=== PATIENT | female | born 1955 | race Caucasian/White ===

== ENCOUNTER 2019-03-13 10:31 | Outpatient (CLI) | payer BC, SELFPAY ==
--- NOTE | 2019-03-13 10:00 | DI.RAD_ITS ---
EXAM: XR TOE LT GREAT INDICATION: f/u L great toe OA. COMPARISON: No exams were available for comparison TECHNIQUE: 2D digital imaging was performed. FINDINGS: There is narrowing of the cartilaginous joint space at the 1st MTP joint. There are prominent osteop hytes present particularly involving the head of the 1st metatarsal in the sesamoids. No other signi ficant bony abnormality seen. IMPRESSION: Moderate to severe degenerative change, 1st MTP joint.
--- NOTE | 2019-03-13 10:00 | DI.RAD_ITS ---
EXAM: XR ANKLE LT COMPLETE INDICATION: lateral malleolus pain. COMPARISON: No exams were available for comparison TECHNIQUE: 2D digital imaging was performed. FINDINGS: There are prominent osteophytes of the plantar fascia attachment on the calcaneus and to a lesser deg ree at the Achilles attachment and at the posterior articular margin of the tibia. The ankle mortise is well maintained. Mild osteophytes of the medial and lateral malleoli noted. IMPRESSION: Degenerative changes as described above
--- NOTE | 2019-03-13 10:02 | DI.RAD_ITS ---
EXAM: XR KNEE LT 3V AP,LAT,SWAPNA INDICATION: L knee pain, h/o arthritis. COMPARISON: XR KNEE RT 3V AP,LAT,SWAPNA from 03/13/2019 TECHNIQUE: 2D digital imaging was performed. FINDINGS: There is marked narrowing of the medial tibiofemoral cartilaginous joint space. There are prominent marginal osteophytes associated with the medial tibiofemoral joint. There is subchondral sclerosis p resent at the medial tibiofemoral joint. IMPRESSION: Conclusion severe DJD of medial tibiofemoral joint
--- NOTE | 2019-03-13 10:02 | DI.RAD_ITS ---
EXAM: XR KNEE RT 3V AP,LAT,SWAPNA INDICATION: new R knee pain. COMPARISON: LEFT KNEE 4+ VIEWS from 01/02/2015 TECHNIQUE: 2D digital imaging was performed. FINDINGS: Three views were obtained. There is a small knee joint effusion. There is marked narrowing of the m edial tibiofemoral cartilaginous joint space and subchondral sclerosis is noted involving the bones a t the medial joint. Mild marginal osteophytes noted involving the joints of the knee. IMPRESSION: DJD particularly involving medial tibiofemoral joint
== END 2019-03-13 10:51 ==
PROVIDERS: PCP Family Medicine; Visit Provider Student in an Organized Health Care Education/Training Program
DX: M25.561 Pain in right knee (principal); M25.562 Pain in left knee; M17.0 Bilateral primary osteoarthritis of knee; M25.572 Pain in left ankle and joints of left foot; M19.072 Primary osteoarthritis, left ankle and foot; M20.22 Hallux rigidus, left foot; M79.675 Pain in left toe(s)
CPT/HCPCS: 73562; 73610; 73660

== ENCOUNTER 2019-07-21 11:32 | Outpatient (CLI) | payer BC, SELFPAY ==
--- NOTE | 2019-07-21 10:20 | DI.RAD_ITS ---
EXAM: XR KNEE RT 4V AP,LAT,SWAPNA,PAT CLINICAL HISTORY: eval R knee pain and swelling TECHNIQUE: COMPARISON: XR KNEE LT 3V AP,LAT,SWAPNA from 03/13/2019 FINDINGS: Four views were obtained. There is moderate to severe narrowing of the medial tibiofemoral cartilagi nous joint space. Slight narrowing of lateral patellofemoral cartilaginous joint space with mild lat eral patellar subluxation noted. Mild to moderate marginal osteophyte formation involving the joints of the knee. IMPRESSION: Moderate DJD, most marked involving medial tibiofemoral joint.
== END 2019-07-21 11:52 ==
PROVIDERS: PCP Family Medicine; Visit Provider Student in an Organized Health Care Education/Training Program
DX: M25.561 Pain in right knee (principal); M17.11 Unilateral primary osteoarthritis, right knee
CPT/HCPCS: 73564

== ENCOUNTER 2019-08-22 09:55 | Outpatient (CLI) | payer BC, SELFPAY ==
--- NOTE | 2019-08-22 09:15 | DI.RAD_ITS ---
EXAM: XR STANDING ALIGNMENT XR KNEE LT 1 VIEW INDICATION: discuss surgery. COMPARISON: XR KNEE RT 4V AP,LAT,SWAPNA,PAT from 07/21/2019 TECHNIQUE: 2D digital imaging was performed. FINDINGS: There is no significant overall leg length discrepancy at the level of the femoral heads. There are degenerative changes of both knees, left greater than right. The ankles show mild degenerative pacheco es. There are mild degenerative changes in the hips. A Merchant view was performed. There is some lateral patellar subluxation and spurring at the articular aspect of the patella. IMPRESSION: Degenerative changes of the medial femoral tibial joint bilaterally and [id number] degenerativ e changes of the right patellofemoral joint. DATA REPOSITORY: RADIATION DOSE DELIVERED:
--- NOTE | 2019-08-22 09:30 | DI.RAD_ITS ---
EXAM: XR STANDING ALIGNMENT XR KNEE LT 1 VIEW INDICATION: discuss surgery. COMPARISON: XR KNEE RT 4V AP,LAT,SWAPNA,PAT from 07/21/2019 TECHNIQUE: 2D digital imaging was performed. FINDINGS: There is no significant overall leg length discrepancy at the level of the femoral heads. There are degenerative changes of both knees, left greater than right. The ankles show mild degenerative pacheco es. There are mild degenerative changes in the hips. A Merchant view was performed. There is some lateral patellar subluxation and spurring at the articular aspect of the patella. IMPRESSION: Degenerative changes of the medial femoral tibial joint bilaterally and gbuv-ia-[id number] degenerativ e changes of the right patellofemoral joint. DATA REPOSITORY: RADIATION DOSE DELIVERED:
== END 2019-08-22 10:15 ==
PROVIDERS: PCP Family Medicine; Visit Provider Student in an Organized Health Care Education/Training Program
DX: M25.561 Pain in right knee (principal); M25.562 Pain in left knee; M17.0 Bilateral primary osteoarthritis of knee; M16.0 Bilateral primary osteoarthritis of hip
CPT/HCPCS: 73560; 77073

== ENCOUNTER 2019-08-31 17:47 | Observation (INO) | payer BC, SELFPAY ==
[2019-08-31] VITALS (9 sets, daily range): BP systolic 95–136; BP diastolic 53–81; PULSE 63–81; RESP 11–26; TEMP 36–37.2; O2SAT 95–97
--- NOTE | 2019-08-31 | DI.RAD_ITS ---
EXAM: XR KNEE RT 2V AP,LAT CLINICAL HISTORY: Postop. TECHNIQUE: 2D digital imaging was performed. COMPARISON: XR KNEE RT 4V AP,LAT,SWAPNA,PAT from 07/21/2019 FINDINGS: BONES: No acute fracture is present. No bony destructive lesion is seen. JOINTS: The knee is normally aligned. There is periarticular spurring of the posterior patella in the lateral femoral tibial joint space. Patient is now status post partial joint replacement. SOFT TISSUE: Postsurgical changes are seen in the soft tissues. IMPRESSION: Status post partial right knee replacement. DATA REPOSITORY: RADIATION DOSE DELIVERED:
[2019-08-31] MEDS: Lactated Ringers 1,000 ML 100 ML IV ×2 (11:03→16:38)
[2019-08-31] MEDS: Gabapentin 300 MG CAP PO (12:14)
[2019-08-31] MEDS: Naproxen 500 MG TAB PO (12:14)
[2019-08-31] MEDS: Acetaminophen 500 MG TAB 1000 MG PO (12:14)
[2019-08-31] MEDS: ceFAZolin 2 GM/50 ML BAG IVPB ×2 (13:12→17:17)
[2019-08-31] MEDS: Bupivacaine 0.25% Pres-Free 30 ML VIAL (16:39)
[2019-08-31] MEDS: Ketorolac 30 MG/ML VIAL (16:40)
--- NOTE | 2019-08-31 17:11 | PDOC.DSDIS_ITS ---
Discharge Plan Disposition Patient Disposition: HOME Condition: Stable Discharge Details Reason For Visit: (R) KNEE ARTHRITIS Attending Provider: Lucien Thurston Primary Care Provider: Geovani Cuadra Home Meds and New Rx's Prescriptions: New naproxen 250 mg tablet 250 - 500 mg PO BID PRN (Reason: Moderate pain or swelling) Qty: 60 RF: 0 aspirin 325 mg tablet,delayed release (DR/EC) 325 mg PO BID 30 Days Qty: 60 RF: 0 oxycodone 5 mg tablet 5 - 10 mg PO Q4H PRN (Reason: moderate to severe pain) Qty: 22 RF: 0 Continued loperamide [Imodium A-D] 2 mg Tablet 2 mg PO Q4H PRNRF: 0 acetaminophen [Tylenol Extra Strength] 500 mg Tablet 500 mg PO Q6H PRNRF: 0 lactase [Lactaid] 3,000 unit Tablet 3,000 unit PO ONCE PRNRF: 0 bismuth subsalicylate [Pepto-Bismol] 262 mg Tablet,Chewable 2 tab PO Q30-60M PRNRF: 0 Probiotic Colon Support 70 mg (5 billion cell) Tablet,Delayed Release (Dr/Ec) 1 tab PO DAILY RF: 0 Natural Tears (PF) 0.1-0.3 % Dropperette 1 drp ophthalmic (eye) PRN PRNRF: 0 naproxen sodium 220 mg Capsule 440 mg PO PRN PRNRF: 0 Discharge Instructions Additional Instructions: Surgery: Right medial unicondylar knee replacement Activity: Weightbearing as tolerated. Walk as comfort allows. Important to restore full knee extension as soon as possible. May gently progress knee flexion over the next few weeks. May use walker as needed. A physical therapy prescription will be provided separately in the office at follow-up if needed. Do not rest with pillows behind knee to prevent knee from getting stuck bent. Prescriptions: Aspirin 325 mg take 1 twice a day to prevent a blood clot 30 days Naproxen 250 mg take 1-2 every 12 hours with a meal as needed for moderate pain Oxycodone 5 mg take 1-2 every 4-6 hours as needed for severe pain You may use kojc-[id number] Tylenol (acetaminophen) as needed for mild pain. These pain medications may be taken all at once or in different combinations as needed. Also, recommend Colace (docusate) as a stool softener as surgery and pain medicine cause constipation. Dressings: Leave Band-Aid in place until follow-up. Keep clean and dry at all times. May remove Shaquille wrap tonight. May rewrap with Shaquille wrap to help control swelling. Follow-up: 10-[address] Thurston Please call the office during business hours with any questions or concerns. Let us know right away if you develop any redness, drainage, fevers, chest pain, or trouble breathing. Do not drink alcohol or drive for at least 24 hours after anesthesia. Referrals: Lucien Thurston MD [ [facility] STAFF PHYSICIAN] - Discharge Orders Discharge Orders: Discharge Order (Routine); Ordered 08/31/19 Ordered By: Lucien Thurston DS: Diagnosis Discharge Diagnosis (1) Osteoarthritis of right knee: Status: Acute
--- NOTE | 2019-08-31 18:24 | W.PM.OP ---
Date of service: 08/31/19 Time of Service: 17:56 Operative Note Operative Note DATE OF PROCEDURE: 08/31/19 PRE-OP DIAGNOSIS: 1. Right knee medial compartmental arthritis POST-OP DIAGNOSIS: same PROCEDURE: 1. Right knee medial unicompartmental arthroplasty The assistant professor of communication surgeon was medically required as this procedure involves retraction, protection of neurovascular structures, and manipulation 2-4 instruments and implants at the same time, which cannot be done without a skilled assistant professor of communication. SURGEON: Lucien Thurston ASSISTING SURGEON: Alex Middleton MOLD FINISHER: None None ANESTHESIA: MAC, regional, local and spinal ESTIMATED BLOOD LOSS: 150 COMPLICATIONS: None Patient was transported to: PACU Patient's condition: stable Implants: Marlene Sigma HP partial knee size 1 metal-backed tibial tray, 7 mm tibial insert fixed bearing, size 1 femoral component Indications: Please see complete medical record for details. Findings: Isolated medial compartment osteoarthritis Procedure Description: The patient was taken to the operating room and transferred to the operating room table. Spinal anesthesia was induced. All bony prominences were well-padded. Preoperative antibiotics were administered. The right knee and lower extremity was prepped and draped in the usual sterile fashion. The correct patient, procedure, and side of the procedure were all verified prior to incision. A slightly medial of midline longitudinal approach was used to the knee extending from the superior pole the patella to the distal aspect of the tibial tubercle. The quadriceps tendon, patella borders and patellar tendon were exposed. A full-thickness arthrotomy was performed starting splitting the quadriceps tendon and leaving a sleeve of tissue on the medial aspect of the patella and taking care to progress along the medial margin the patellar tendon. The MCL was elevated off the proximal medial tibia. The tibial alignment jig was set in place on the anterior medial aspect of the tibia and carefully adjusted to achieve proper alignment in the coronal and sagittal planes. Reciprocating saw was used to create the vertical cut at the medial aspect of the medial tibial eminence taking care to protect the ACL ligament footprint. The transverse cut was then done using the microsagittal saw through the jig taking care to retract and protect the MCL. The bone piece and cut were inspected and found to be appropriate for patient anatomy. The 7 mm spacer block was inserted but found to be tight. The jig was then used to remove another 2 mm of proximal tibia. A rasp was used to clean up the cut especially the L component. The 7 mm spacer block then fit adequately with approximately 2 mm of joint space opening in flexion and extension. The tibia was sized and found to be size 1. There was equal flexion and extension gap. The distal femoral cutting block was inserted taking care to orient it appropriately. Distal femoral cut was done using a microsagittal saw through the guide. The guide and bone piece were removed cut inspected and found to be adequate. The femoral sizing blocks were used and the size was almost a 2 but the 2 had overhang medially and laterally unfortunately so a size 1 although somewhat undersized had to be used. Care was taken to ensure the block was flush with the resected distal femoral surface. Next, the posterior cut was done through the jig, the anterior cut was done using the osteotomes, the posterior chamfer cut was done to the jig, and the drill was used to drill the 2 peg holes. The femoral component trial was placed in the distal femur and the 7 mm spacer block confirmed appropriate balancing in flexion extension. The resected bone ends were inspected. It was used to clean up the edge of the cuts. Care was taken to ensure no cartilage delamination of the distal femur or trochlea. The majority of the medial meniscus was removed. Tibial template was inserted in size confirmed to be appropriate. The keel was used by hand to remove bone from the slot and the tibial peg drill was used in the peg hole. The pulse lavage was used to clean the bone surfaces. An Exparel injection was infiltrated in the posterior knee. Cement was prepared smart set medium viscosity containing gentamicin 40 g. At the appropriate time and the working face cement was carefully placed and pressurized into the proximal tibia and applied to the back of the tibial tray taking care to only have minimal cement posteriorly. Cement was also placed on the underside of the femoral implant implant. The tibial component was inserted at an angle and then impacted directing pressure from posteriorly to anteriorly keep the flow of cement from posterior to anterior. Cement was then applied to the distal femur and the femoral component impacted. Excess cement was removed. The knee was brought into full extension and maintained until the cement was completely hardened. Tibial tray market research manager was removed and the final tibial insert was inserted into place. The knee was tested through full range of motion found to be stable with good balancing and a few millimeters of gapping and 30 degrees of flexion. Knee was inspected for loose debris and cement and all removed. The knee was copiously irrigated with the pulse lavage and then Aricept. The remainder of the Exparel injection was used to diffusely infiltrate capsular tissues about the knee. Procrit hemostasis was achieved. The capsule closed using #1 Vicryl in a running strata fix barbed suture. Superficial layers were irrigated. 2-0 Monocryl was used in a buried interrupted fashion to close subcutaneous tissue. A 3-0 Monocryl was used to close skin in a buried subcuticular fashion. The skin incision was glued and then covered with a silver impregnated bandage. An Shaquille wrap was applied from the foot up to the thigh. The patient awoke from anesthesia without complication was transferred to the recovery room in stable condition.
== END 2019-08-31 21:02 | disposition home or self-care (01) ==
LOC: MS 18:12
PROVIDERS: Admitting Provider Student in an Organized Health Care Education/Training Program; PCP Family Medicine; Visit Provider Student in an Organized Health Care Education/Training Program
PROC: 0SRC0L9 Replacement of Right Knee Joint with Medial Unicondylar Synthetic Substitute, Cemented, Open Approach (ICD-10-PCS; CPT 27447; principal; 2019-08-31 11:30)
DX: M17.11 Unilateral primary osteoarthritis, right knee (principal); M25.561 Pain in right knee; Z96.651 Presence of right artificial knee joint; G89.18 Other acute postprocedural pain; M21.162 Varus deformity, not elsewhere classified, left knee; M21.161 Varus deformity, not elsewhere classified, right knee
CPT/HCPCS: 27446; C1776; 73560; J0690; J1885; J2250; J2370; J3010

== ENCOUNTER 2019-09-12 11:32 | Outpatient (CLI) | payer BC, SELFPAY ==
--- NOTE | 2019-09-12 11:29 | DI.RAD_ITS ---
EXAM: XR KNEE RT 2V AP,LAT CLINICAL HISTORY: Follow up TECHNIQUE: COMPARISON: XR KNEE RT 2V AP,LAT from 08/31/2019 FINDINGS: Two views were obtained and show medial hemiarthroplasty in position. Components appear well seated. There are mild degenerative changes noted involving lateral tibiofemoral and patellofemoral joints. IMPRESSION:
== END 2019-09-12 11:52 ==
PROVIDERS: PCP Family Medicine; Visit Provider Student in an Organized Health Care Education/Training Program
DX: M22.2X1 Patellofemoral disorders, right knee (principal); Z96.651 Presence of right artificial knee joint
CPT/HCPCS: 73560

== ENCOUNTER 2020-03-19 07:34 | Outpatient (CLI) | payer BC, SELFPAY ==
[2020-03-20 14:44] LABS: COVID-19 RT-PCR Result NEGATIVE (Negative)
== END 2020-03-19 07:54 ==
PROVIDERS: PCP Family Medicine; Visit Provider Student in an Organized Health Care Education/Training Program
DX: Z11.59 Encounter for screening for other viral diseases (principal); Z01.818 Encounter for other preprocedural examination
CPT/HCPCS: U0003

== ENCOUNTER 2020-03-22 06:35 | Day surgery (SDC) | payer BC, SELFPAY ==
[2020-03-22] VITALS (7 sets, daily range): BP systolic 106–127; BP diastolic 56–79; PULSE 69–84; RESP 12–23; TEMP 36.4–36.7; O2SAT 94–98
[2020-03-22] MEDS: Gabapentin 300 MG CAP PO (07:03)
[2020-03-22] MEDS: Naproxen 500 MG TAB PO (07:03)
[2020-03-22] MEDS: Acetaminophen 500 MG TAB 1000 MG PO (07:03)
[2020-03-22] MEDS: Lactated Ringers 1,000 ML 100 ML IV (07:32)
[2020-03-22] MEDS: Bupivacaine 0.25% Pres-Free 30 ML VIAL ×2 (07:50→08:51)
[2020-03-22] MEDS: ceFAZolin 2 GM/50 ML BAG IVPB ×2 (08:08→12:00)
[2020-03-22] MEDS: Ketorolac 30 MG/ML VIAL (08:53)
--- NOTE | 2020-03-22 11:36 | W.PM.OP ---
Date of service: 03/22/20 Time of Service: 11:18 Operative Note Operative Note DATE OF PROCEDURE: 03/22/20 PRE-OP DIAGNOSIS: 1. Left knee medial compartmental arthritis POST-OP DIAGNOSIS: other 1. Left knee medial compartmental arthritis 2. Left patellofemoral osteophytes/arthrosis PROCEDURE: 1. Left knee medial unicompartmental arthroplasty, CPT # 85249 2. Left patellar arthroplasty without prosthesis, CPT # 84860 The water quality assistant was medically required as this procedure involves retraction, protection of neurovascular structures, and manipulation of multiple instruments and implants at the same time, which cannot be done without a skilled water quality assistant. SURGEON: Lucien Thurston SHOT EXAMINER: Gala Mccauley ANESTHESIA: MAC, regional, local and spinal ESTIMATED BLOOD LOSS: 50 PATHOLOGY: none sent TOURNIQUET TIME: 0 COMPLICATIONS: None Patient was transported to: PACU Patient's condition: stable Implants: Depuy Sigma HP partial knee size 2 metal-backed tibial tray, 7 mm tibial insert fixed bearing, size 3 femoral component Indications: Please see complete medical record for details. Findings: Full-thickness moderately sized medial compartment cartilage loss, intact ACL, small discrete trochlear cartilage lesion, medial patellar facet osteophytes, lateral femoral condyle osteophyte Procedure Description: The patient was taken to the operating room and transferred to the operating room table. Spinal anesthesia was induced. All bony prominences were well-padded. Preoperative antibiotics and 1 g TXA were administered. A tourniquet was placed loosely over padding high on the patient's thigh. The knee and lower extremity were prepped and draped in the usual sterile fashion. The correct patient, procedure, and side of the procedure were all verified prior to incision. A slightly medial of midline longitudinal approach was used to the knee extending from the superior pole the patella to the distal aspect of the tibial tubercle. The quadriceps tendon, patella borders, and patellar tendon were exposed. A full-thickness arthrotomy was performed starting splitting the quadriceps tendon and leaving a sleeve of tissue on the medial aspect of the patella and taking care to progress along the medial margin the patellar tendon. The MCL was elevated off the proximal medial tibia. The tibial alignment jig was set in place on the anterior medial aspect of the tibia and carefully adjusted to achieve proper alignment in the coronal and sagittal planes. Reciprocating saw was used to create the vertical cut at the medial aspect of the medial tibial eminence taking care to protect the ACL ligament footprint. The transverse cut was then done using the microsagittal saw through the jig taking care to retract and protect the MCL. The bone piece and cut were inspected and found to be appropriate for patient anatomy. The 7 mm spacer block was inserted and found to have good, nearly equal stability in full extension and 90 degrees of flexion with approximately 2 mm of joint space opening in 30 degrees of flexion. A rasp was used to clean up the cut especially the L component as well as remove a slight additional amount of residual bone on the posterior tibia, which equalized the flexion extension gaps. With the knee in extension, the tibial trial spacer block was used to gala the rotational alignment and anterior extent of the femoral component. The spacer block was removed and the tibia was sized with the depth gauge. The distal femoral cutting block was inserted taking care to orient it appropriately. The cut was done using the saw through the guide. The guide was removed, and the femur was sized with the femoral sizing blocks. The appropriate sized cutting jig was selected. Care was taken to ensure the block was flush with the resected distal femur bone surface. A curved gouge was used to cut the profile of the proximal tip of the femoral prosthesis, gala the extent of the anterior chamfer cut, and prevent trochlear cartilage delamination. The posterior cut was done through the jig, the anterior cut was done using the osteotomes, the posterior chamfer cut was done to the jig, and the drill was used to drill the 2 peg holes. The cutting block and bone cuts were removed. The medial meniscus remnant was removed. The femoral component trial was placed in the distal femur and the 7 mm spacer block confirmed appropriate balancing in flexion, extension, and again 2 mm of medial joint space opening in 30 degrees of flexion. Tibial template was inserted and the size confirmed to be appropriate. The keel was used by hand to remove bone from the slot and the tibial peg drill was used in the peg hole. The pulse lavage was used to clean the bone surfaces. SmartSet medium viscosity cement was prepared. At the appropriate time during the early working phase, the cement was applied to the posterior part of the femoral component and onto the underside of the tibial component. Then, cement was carefully placed and pressurized into the proximal tibia taking care to only have minimal cement posteriorly. The tibial component was inserted at an angle and then impacted directing pressure from posterior to anterior to keep the flow of cement from posterior to anterior. Cement was then applied to the distal femur and the femoral component impacted. Excess cement was removed. The knee was brought into full extension and this position with axial load was maintained until the cement was completely hardened at 18 minutes. Tibial tray records management specialist was removed, and the final tibial insert was inserted and clicked into place. The knee was tested through range of motion found to be stable with equal balancing from full extension to flexion past 90 degrees and a couple millimeters of medial joint space opening in 30 degrees of flexion. The wound was copiously irrigated with the pulse lavage and then Irrisept. A combination 266 mg Exparel, 30 mg ketorolac, and 50 mL bupivicaine 0.25% pain injection was widely infiltrated about the knee. Appropriate hemostasis was achieved. The capsule was approximated using #1 Vicryl in a figure-of-8 interrupted fashion and then closed using Stratafix #1 PDS barbed suture in a running fashion. The superficial layers were irrigated. Subcutaneous tissue was closed using 2-0 Monocryl in a buried interrupted fashion. Skin was closed using 3-0 Monocryl in a buried subcuticular fashion. The skin incision was glued and then covered with a Mepilex Ag dressing. An Shaquille wrap was applied from the foot up to the thigh. The patient awoke from anesthesia without complication was transferred to the recovery room in stable condition.
--- NOTE | 2020-03-22 11:37 | W.PM.DSUDISC ---
Discharge Plan Disposition Patient Disposition: HOME Condition: Stable Discharge Details Reason For Visit: Left partial knee replacement Attending Provider: Lucien Thurston Primary Care Provider: Geovani Cuadra Home Meds and New Rx's Prescriptions: New naproxen 250 mg tablet 250 - 500 mg PO BID PRN (Reason: Moderate pain or swelling) Qty: 90 RF: 0 aspirin 325 mg tablet,delayed release (DR/EC) 325 mg PO BID 30 Days Qty: 60 RF: 0 ondansetron 4 mg tablet,disintegrating 4 mg PO Q6H PRN (Reason: nausea or vomiting) Qty: 5 RF: 0 oxycodone 5 mg tablet 5 - 10 mg PO Q4H PRN (Reason: moderate to severe pain) Qty: 22 RF: 0 Continued diclofenac sodium [Voltaren] 1 % gel 2 g topical QID RF: 0 loperamide [Imodium A-D] 2 mg Tablet 2 mg PO Q4H PRNRF: 0 acetaminophen [Tylenol Extra Strength] 500 mg Tablet 500 mg PO Q6H PRNRF: 0 lactase [Lactaid] 3,000 unit Tablet 3,000 unit PO ONCE PRNRF: 0 bismuth subsalicylate [Pepto-Bismol] 262 mg Tablet,Chewable 2 tab PO Q30-60M PRNRF: 0 Natural Tears (PF) 0.1-0.3 % Dropperette 1 drp ophthalmic (eye) PRN PRNRF: 0 naproxen 250 mg tablet 250 - 500 mg PO BID PRN (Reason: Moderate pain or swelling) Qty: 60 RF: 0 Discontinued ibuprofen 200 mg capsule 200 mg PO Q6H PRNRF: 0 naproxen sodium 220 mg Capsule 440 mg PO PRN PRNRF: 0 Discharge Instructions Additional Instructions: Surgery: Left medial unicondylar knee replacement Activity: Weightbearing as tolerated. Walk as comfort allows. May use walker as needed. Important to restore full knee extension as soon as possible. May gently progress knee flexion over the next few weeks. Do not rest with pillows behind knee to prevent knee from getting stuck bent. Physical therapy prescription will be sent electronically. Prescriptions: Aspirin 325 mg take 1 twice a day to prevent a blood clot 30 days Naproxen 250 mg take 1-2 every 12 hours with a meal as needed for moderate pain Oxycodone 5 mg take 1-2 every 4-6 hours as needed for severe pain You may use [id number] Tylenol (acetaminophen) as needed for mild pain. These pain medications may be taken all at once or in different combinations as needed. Ondansetron (Zofran) 4 mg take 1 orally dissolving tablet every 6 hours as needed for nausea or vomiting Also, recommend probiotic/yogurt and Colace (docusate) as a stool softener as surgery and pain medicine cause upset stomach and/or constipation. Dressings: Leave Band-Aid in place until follow-up. Keep clean and dry at all times. May remove Shaquille wrap tomorrow. May re-wrap with Shaquille wrap to help control swelling as needed. Follow-up: 10-[address] Thurston You may take off the leg compression stockings tomorrow at home. You may also leave them on a few days longer if you have a history of leg swelling or edema. Let us know right away if you develop any redness, drainage, fevers, chest pain, or trouble breathing. Do not drink alcohol or drive for at least 24 hours after anesthesia. Please call the office during business hours with any questions or concerns. Referrals: Lucien Thurston MD [ [facility] STAFF PHYSICIAN] - Discharge Orders Discharge Orders: Discharge Order (Routine); Ordered 03/22/20 Ordered By: Lucien Thurston DS: Diagnosis Discharge Diagnosis (1) Unilateral primary osteoarthritis, left knee: Status: Acute
--- NOTE | 2020-03-22 11:52 | DI.RAD_ITS ---
EXAM: XR KNEE LT 2V AP,LAT INDICATION: Postop. COMPARISON: CR XR STANDING ALIGNMENT from 08/22/2019 CR XR KNEE LT 1V from 08/22/2019 TECHNIQUE: 2D digital imaging was performed. Portable exam. AP and cross-table lateral views were performed FINDINGS: There has been placement of a medial femoral tibial joint space prosthesis. The alignment appears s atisfactory. There is residual postsurgical air in the soft tissues. DATA REPOSITORY: RADIATION DOSE DELIVERED:
== END 2020-03-22 13:45 | disposition home or self-care (01) ==
PROVIDERS: PCP Family Medicine; Visit Provider Student in an Organized Health Care Education/Training Program
PROC: (CPT 27446; principal; 2020-03-22 07:30)
DX: M17.12 Unilateral primary osteoarthritis, left knee (principal)
CPT/HCPCS: 27446; 27437; C1776; 76942; 73560; J0690; J1100; J1885; J2001; J2250; J2405

== ENCOUNTER 2020-05-21 11:25 | Outpatient (CLI) | payer BC, SELFPAY ==
--- NOTE | 2020-05-21 11:00 | DI.RAD_ITS ---
EXAM: XR KNEE LT 2V AP,LAT CLINICAL HISTORY: F/u TECHNIQUE: COMPARISON: CR XR KNEE LT 2V AP,LAT from 03/22/2020 CR XR KNEE RT 2V AP,LAT from 05/21/2020 FINDINGS: Two views of the left knee were obtained and show medial irma arthroplasty in position. The componen ts appear well seated. Mild degenerative changes of patellofemoral and lateral tibiofemoral joints n oted. Two views of the right knee were obtained and show medial irma arthroplasty in position. Components appear well seated. Mild degenerative changes of patellofemoral and lateral tibiofemoral joints note d. IMPRESSION: RADIATION DOSE DELIVERED: Total DLP Total DLP
== END 2020-05-21 11:45 ==
PROVIDERS: PCP Family Medicine; Referring Provider Family Medicine; Visit Provider Student in an Organized Health Care Education/Training Program
DX: M17.0 Bilateral primary osteoarthritis of knee (principal)
CPT/HCPCS: 73560

== ENCOUNTER 2020-09-03 11:08 | Outpatient (CLI) | payer BC, SELFPAY ==
--- NOTE | 2020-09-03 10:30 | DI.RAD_ITS ---
EXAM: XR KNEE RT 2V AP,LAT CLINICAL HISTORY: f/u TECHNIQUE: COMPARISON: CR XR KNEE LT 2V AP,LAT from 09/03/2020 FINDINGS: Two views were obtained. There is a medial irma arthroplasty in position. Components appear well se ated. There is a probable small joint effusion. Mild degenerative changes lateral tibiofemoral join t and patellofemoral joint noted. IMPRESSION: RADIATION DOSE DELIVERED: Total DLP
--- NOTE | 2020-09-03 10:30 | DI.RAD_ITS ---
EXAM: XR KNEE LT 2V AP,LAT CLINICAL HISTORY: f/u TECHNIQUE: COMPARISON: CR XR KNEE RT 2V AP,LAT from 05/21/2020 FINDINGS: Two views were obtained. There is a medial irma arthroplasty in position. Components appear well se ated. Mild degenerative changes are noted involving patellofemoral and lateral tibiofemoral joints. There appears to be a small joint effusion. IMPRESSION: RADIATION DOSE DELIVERED: Total DLP
== END 2020-09-03 11:09 | disposition home or self-care (01) ==
LOC: DIORS 11:09
PROVIDERS: PCP Family Medicine; Referring Provider Family Medicine; Visit Provider Student in an Organized Health Care Education/Training Program
DX: M17.0 Bilateral primary osteoarthritis of knee (principal)
CPT/HCPCS: 73560

== ENCOUNTER 2021-04-02 12:02 | Outpatient (CLI) | payer BC, SELFPAY ==
--- NOTE | 2021-04-02 11:35 | DI.RAD_ITS ---
Exam(s) XR KNEE LT 2V AP,LAT EXAM: XR KNEE LT 2V AP,LAT CLINICAL HISTORY: s/p left partial replacement. TECHNIQUE: 2D digital imaging was performed. COMPARISON: CR XR KNEE LT 2V AP,LAT from 05/21/2020 CR XR KNEE RT 2V AP,LAT from 05/21/2020 CR XR KNEE RT 2V AP,LAT from 09/03/2020 FINDINGS: There is stable position alignment of the components of the medial hemiarthroplasty. No fracture or loosening. No significant radiographic change from 05/21/2020. There is no significant narrowing of the lateral compartment. IMPRESSION: DATA REPOSITORY: RADIATION DOSE DELIVERED:
--- NOTE | 2021-04-02 11:35 | DI.RAD_ITS ---
Exam(s) XR KNEE RT 2V AP,LAT EXAM: XR KNEE RT 2V AP,LAT CLINICAL HISTORY: right knee follow-up. TECHNIQUE: 2D digital imaging was performed. COMPARISON: CR XR KNEE RT 2V AP,LAT from 09/03/2020 CR XR KNEE RT 2V AP,LAT from 09/03/2020 CR XR KNEE LT 2V AP,LAT from 04/02/2021 FINDINGS: There is continued stable position alignment of the components of medial arthroplasty. No fracture o r loosening evident. IMPRESSION: DATA REPOSITORY: RADIATION DOSE DELIVERED:
== END 2021-04-02 12:03 | disposition home or self-care (01) ==
LOC: DIORS 12:02
PROVIDERS: PCP Family Medicine; Referring Provider Family Medicine; Visit Provider Physician Assistant
DX: M17.0 Bilateral primary osteoarthritis of knee (principal); Z96.653 Presence of artificial knee joint, bilateral
CPT/HCPCS: 73560

== ENCOUNTER 2023-04-20 16:32 | Emergency (ER) | payer BC, SELFPAY ==
[2023-04-20 16:39] VITALS: BP 144/82; PULSE 91; RESP 20; TEMP 36.8; O2SAT 99
--- OUTSIDE RECORDS SUMMARY | 2023-04-20 16:42 | XMS_ITS | Patient Health Record ---
Author Name Unknown Organization [facility] Address [address] [place] [address] [phone] Care Team Providers Care Senior Network Engineer Name Role Phone Geovani Cuadra MD Primary Care Provider ALLERGIES Allergen (clinical drug ingredient) Drug/Non Drug Allergy documented on EMR Reaction Allergy Type Onset Date Status Gluten gluten (uncoded) Nausea, Vomitin g and Diarrhea Allergy Active lactose intolenant (uncoded) Diarrhea Allergy Active polymyxin B / trimethoprim Polytrim itching, redness, swelling Drug Allergy Active REASON FOR REFERRAL No Information MEDICATIONS Medication SIG (Take, Route, Fr equency, Duration) Notes Start Date End Date Status levoFLOXacin 500 MG 1 tablet Orally Once a day Active Clindamycin HCl 300 MG 1 capsule Orally every 6 hrs 09/07/2021 Active IMMUNIZATIONS Vaccine Route Administration Date Status Comme nts COVID-19 Moderna 98241 Unknown 09/23/2020 Administered COVID-19 Moderna 73162 Unknown 10/21/2020 Administered COVID-19 Moderna 22267 Unknown 04/25/2021 Administered INFLUENZA 18 YRS TO 64 YRS OLD-STATE SUPPLIED Unknown 04/21/2018 Administered [facility] [place] TDaP Adult [facility] [address] IM Intramuscular 11/27/2016 Administered SOCIAL HISTORY Tobacco Use: Social History Observation Description Date Details (start date - stop date) Never Smoker NA - NA Sex Assigned At : Social History Observation Description Sex Assigned At Female OTHER TOBACCO USE: Question Answer Notes Are you an other tobacco user? No SMOKING STATUS: Question Answer Notes Are you a: Nonsmoker PRAPARE Question Answer Notes Date Completed/Updated: 09/09/2021 What is your current housing situation? I have h ousing Are you worried about losing your housing? No What is the highest level of school that you have finished? More than high school What is your current work situation? I choose no t to answer this question In the past year, have you o r any family members you live with been unable to get any of the following when it was really needed? Check all that apply I do not have problems meeting my needs Has lack of transportation k ept you from medical appointments, meetings, work or from getting things needed for daily living? No How often do you see or talk to people that you care about and feel close to? (For example: talking to friends on the phone, visiting friends or family, going to mormon or club meetings) 3 to 5 times a week How stressed are you? Stress is when someone feels tense, nervous, anxious, or can't sleep at night because their mind is troubled Quite a bit In the past year have you sp ent more than 2 nights in a row in a senior living, [place] health care facility, retirement center, or juvenile correctional facility? No Are you a refugee? No What country are you from? [place] Do you feel physically and e motionally safe where you currently live? Yes In the past year, have you b een afraid of your partner or ex-partner? No PRAPARE Score: 3 PROBLEMS Problem Type ICD Code Onset Dates Problem Status W/U Status Risk SNOMED Code Notes Problem PTSD (post-traumati c stress disorder) (F43.10) Active confirmed Posttraumatic stress disorder (64250848) Problem Adjustment disorder (F43.20) Active confirmed Adjustment disorder (30949537) Problem Grief (F43.21) Active confirmed Grief ( 184234724) Encounters Encounter Location Date Provider Diagnosis [facility] [address], [place] [id number] 07/20/2022 Geovani Cuadra MD PLAN OF TREATMENT No Information Insurance Providers Payer Name Payer Address Payer Phone Subscriber Number Group Number Insured Name Patient Relationship to Insured Coverage Start Date Coverage End Date [employer] [address] [place] [address] [id number] Ernestine Sy Self - patient is the insured MEDICAL (GENERAL) HISTORY Medical History History ICD Code Myalgias and arthralgias Hx of bilateral hand paresthesias Hx of gout GI irregularity - constipation and diarr hea knee arthritis Surgical History Surgery Date(Month/Year) Diagnostic laparoscopy, TONNY, bx of L ovary, bilateral oophorpexy and cystoscopy 05/06/10 Upper GI 06/04/08 Colonoscopy 06/29/05 left carpal tunnel 08/31/2012
--- NOTE | 2023-04-20 16:52 | ED.GENADUL_ITS ---
Discharge Plan Disposition Patient Disposition: Home Condition: Stable Discharge Details Clinical Impression: Edema, peripheral Primary Care Provider: Geovani Cuadra ED Provider: Alicia Orellana Home Meds and New Rx's Prescriptions: Continued diclofenac sodium [Voltaren] 1 % gel 2 g topical QID Rx Instructions: apply to single elbow, wrist or hand; for hand includes palm/fingers/back of hand loperamide [Imodium A-D] 2 mg Tablet 2 mg PO Q4H PRN acetaminophen [Tylenol Extra Strength] 500 mg Tablet 500 mg PO Q6H PRN Natural Tears (PF) 0.1-0.3 % Dropperette 1 drp ophthalmic (eye) PRN PRN Discharge Instructions Instructions: Leg Edema (ED) Additional Instructions: No evidence of rhabdomyolysis, congestive heart failure. No evidence of electrolyte abnormality in your blood work. Rest, ice, compression, elevation. Increase oral fluids such as water. You may get compression socks. Please take Tylenol or Ibuprofen with food every 4-6 hours as needed for pain and swelling. Follow up with primary care provider in 3-5 days. Return to ED sooner if any worsening or concerns. Increase oral fluids. Please call the number on the top of the ultrasound order to schedule an outpatient ultrasound. Referrals: Geovani Cuadra [Primary Care Provider] - 1 week Gene Jane DO [OSTEOPATHIC DOCTOR] - 1 week Discharge Data Discharge Date/Time-TO BE ENTERED AT DEPARTURE: 04/20/23 18:22 Medical Decision Making 67-year-old female presents to the ER with a chief complaint of bilateral lower extremity swelling which she has noticed over the last week. She reports that she has been working out very hard over the last month. She reports that she has been taking approximately 17 exercise classes a week which also involve weightlifting. She denies any dyspnea, shortness of breath, or fatigue. She denies any chest pain currently. Does have a history of PTSD gout gluten intolerance lactose intolerance and arthritis. She reports that she has not recently had any blood work done she does have a PCP but has not had any recommended screening tests. Work-up ordered including CBC CMP, magnesium, CK, troponin and proBNP EKG and UA. Differential diagnosis includes but not limited to rhabdomyolysis, periphreal edema, DVT which would be rare due to bilateral swelling, electrolyte abnormality or imbalance, less likely CHF. Patient refusing EKG at this time due to concerns over financial reasons. EKG will be canceled. Troponin ordered will repeat EKG if troponin is positive. At this time it is appropriate patient is denying any chest pain. No evidence of rhabdomyolysis at this time. Kidney functions are within normal limits. Labs are noted below no evidence of CHF. No evidence of electrolyte abnormality. Discussed results with patient who verbalized understanding. All her questions were answered to the best my ability. I did discuss at length with her home care and follow-up care and outpatient ultrasound was ordered due to the leg swelling. Instructed him on home care and to increase water consumption and compression socks she verbalized understanding. This text was generated using [employer] dictation system, please disregard any oddities of phrase or misspellings. Lab Data Lab results reviewed: Yes I reviewed the patient's lab results. Labs: Laboratory Tests Range/Units 04/20/23 04/20/23 16:52 17:00 WBC (4.4-10.8) 10^3/uL 9.38 RBC (3.93-5.22) 10^6/uL 4.60 Hgb (11.2-15.7) g/dL 13.3 Hct (36.0-46.0) % 40.9 MCV (80-95) fL 89 MCH (27.0-33.0) pg 28.9 MCHC (32.0-36.0) % 32.5 RDW (11.7-14.6) % 12.8 Plt Count (130-400) 10^3/uL 338 MPV (8.0-11.0) fL 9.0 Immature Gran % 0.3 Neutrophils % 74.7 Lymphocytes % 9.9 Monocytes % 13.0 Eosinophils % 1.6 Basophils % 0.5 Nucleated RBC % (0.0-0.3) % 0.0 Absolute Neutrophils (1.2-6.7) 10^3/uL 7.00 H Absolute Lymphocytes (1.2-3.4) 10^3/uL 0.93 L Absolute Monocytes (0.1-0.8) 10^3/uL 1.22 H Absolute Eosinophils (0.0-0.7) 10^3/uL 0.15 Absolute Basophils (0.0-0.2) 10^3/uL 0.05 Sodium (136-145) mmol/L 140 Potassium (3.5-5.1) mmol/L 3.6 Chloride (98-107) mmol/L 103 Carbon Dioxide (21.0-32.0) mmol/L 28.9 Anion Gap (3-11) mmol/L 8.1 BUN (7-18) mg/dL 13 Creatinine (0.55-1.02) mg/dL 0.9 Est GFR (CKD-EPI 2020) (mL/min/1.73m2) 70.51 Glucose (74-106) mg/dL 102 Calcium (8.5-10.1) mg/dL 9.3 Magnesium (1.8-2.4) mg/dL 2.1 Total Bilirubin (0.2-1.0) mg/dL 0.6 AST (15-37) U/L 19 ALT (14-59) U/L 34 Alkaline Phosphatase (46-116) U/L 129 H Creatine Kinase (26-192) U/L 50 Troponin I (<or=60) ng/L < 50 NT-Pro-B Natriuret Pep (<300) pg/mL 108 Total Protein (6.4-8.2) g/dL 7.4 Albumin (3.4-5.0) g/dL 3.7 Urine Color (Yellow) Yellow Urine Clarity (Clear) Clear Urine pH (5-8) 6.0 Ur Specific [place] (1.005-1.025) 1.020 Urine Protein (Negative) mg/dL Negative Urine Ketones (Negative) mg/dL Negative Urine Blood (Negative) Trace-intact H Urine Nitrite (Negative) Negative Urine Bilirubin (Negative) Negative Urine Urobilinogen (Up to 0.2) mg/dL 0.2 Ur Leukocyte Esterase (Negative) Negative Urine RBC (0-2) HPF 3-5 H Urine WBC (0-5) HPF Negative Ur Epithelial Cells (Negative) HPF Rare Urine Crystals (Negative) HPF Negative Urine Bacteria (Negative) HPF Negative Urine Mucus (Negative) Negative Ur Culture Indicated? No Urine Glucose (Negative) mg/dL Negative HPI General Mode of arrival: ambulatory . Date/Time Provider Initiated Documentation: 04/20/23 16:34 . Limitations to Documentation: no limitations . Information obtained by: patient, RN notes reviewed and old records reviewed . HPI Narrative: 67-year-old female presents to the ER with a chief complaint of bilateral lower extremity swelling which she has noticed over the last week. She reports that she has been working out very hard over the last month. She reports that she has been taking approximately 17 exercise classes a week which also involve w eightlifting. She denies any dyspnea, shortness of breath, or fatigue. She denies any chest pain currently. Does have a history of PTSD gout gluten intolerance lactose intolerance and arthritis. She reports that she has not recently had any blood work done she does have a PCP but has not had any recommended screening tests. Related Data Home Medications Medication Instructions Recorded Confirmed acetaminophen 500 mg tablet 500 mg PO Q6H PRN 08/28/19 04/02/21 (Tylenol Extra Strength) loperamide 2 mg tablet (Imodium 2 mg PO Q4H PRN 08/28/19 04/02/21 A-D) dextran 70-hypromellose (PF) 0.1 1 drp ophthalmic (eye) PRN PRN 08/31/19 04/02/21 %-0.3 % eye drops in a dropperette (Natural Tears (PF)) diclofenac sodium 1 % topical gel 2 g topical QID 03/13/20 04/02/21 (Voltaren) Allergies Allergy/AdvReac Type Severity Reaction Status Date / Time Sulfa (Sulfonamide Allergy Mild irratation Verified 04/20/23 16:45 Antibiotics) peanut Allergy Itching Verified 04/20/23 16:45 gluten AdvReac Celiac Verified 04/20/23 16:45 per patient lactose AdvReac GI severe Verified 04/20/23 16:45 General Stated Complaint: [facility] [place]: 3 Review of Systems All systems reviewed & are unremarkable except as noted in HPI and below Cardiovascular Cardiovascular: Reports leg edema (Bilateral) Musculoskeletal Musculoskeletal: Reports as per HPI, Reports back pain and Reports stiffness Integumentary/Breasts Skin/Breast: Reports as per HPI and Reports skin swelling PFS All Active Problems (Updated 04/20/23 @ 23:27 by Alicia Orellana NP) Edema, peripheral (Acute) Adjustment disorder (Chronic) Grief (Chronic) Diarrhea (Acute) Constipation (Acute) Paresthesia of hand, bilateral (Acute) Arthralgia (Acute) Myalgia (Acute) Screening for colon cancer (Acute) Pes anserinus bursitis of both knees (Acute) History of partial knee replacement (Acute) R 08/31/19 L 03/22/20 Unilateral primary osteoarthritis, left knee (Acute) s/p medial UKA 03/22/20 Osteoarthritis of right knee (Acute) s/p medial UKA 08/31/19 Arthritis of carpometacarpal (CMC) joint of right thumb (Acute) Hallux rigidus, left foot (Acute) Osteophyte, left ankle (Acute) Right carpal tunnel syndrome (Acute) No-show for appointment (Acute) Canker sores oral (Acute) Medical History PTSD (post-traumatic stress disorder) Gout Gluten intolerance Lactose intolerance Gluten free diet Per patient celiac Arthritis Surgical History History of esophagogastroduodenoscopy (EGD) (~2007) H/O cystoscopy H/O laparoscopy S/P endometrial ablation History of colonoscopy (~2005) Hx of hysterectomy History of trigger finger release left hand History of carpal tunnel surgery of left wrist Social History Smoking/Tobacco Use Status: Never Smoking risk assessment performed?: Yes Alcohol Intake: current Alcohol Intake frequency: a few times a week Alcohol type: wine and other Drug use: Never Substance use type: does not use Current gender identity: female Do you feel safe at home: Yes Do you feel safe in your relationship?: Yes Exam Narrative Exam Narrative: Constitutional: Alert and oriented x3. Appears stated age. Normal body habitus. Head: Normocephalic, no trauma. Eyes: Pupils PERRL, Red reflex noted, EOM's intact. Eyelids symmetrical without lesions, discharge, or swelling. Chest: RRR, Normal S1, S2, distal pulses intact. Resp: Lungs clear to auscultation bilaterally, no wheezes, rales, or rhonchi. Abdomen: Soft, non-distended, Normoactive bowel sounds all 4 quads. Musculoskeletal: Normal gait, 5/5 strength to all four extremities. Skin: No suspicious rashes or lesions. Capillary refill less than 2 sec. 2+ pitting edema noted to bilateral lower extremities from srivastava down, she does have slight ecchymosis noted to the bottoms of her feet. She also reports painful feet. Neurologic: Cranial nerves II-XII intact. Alert and oriented x 3. Motor: No deficits noted. Sensory: Intact bilaterally all 4 extremities. Reflexes: DTR's intact bilaterally.. Hematologic/Lymphatic: No ecchymosis, no lymphadenopathy. Course Vital Signs Vital signs: Vital Signs Temperature 36.8 C 04/20/23 16:39 Pulse 91 H 04/20/23 16:39 Respiratory Rate 20 04/20/23 16:39 Blood Pressure 144/82 H 04/20/23 16:39 Pulse Oximetry 99 04/20/23 16:39 Temperature 36.8 C 04/20/23 16:39 Temperature Source Oral 04/20/23 16:39 Pulse 91 H 04/20/23 16:39 Respiratory Rate 20 04/20/23 16:39 Respiratory Effort Normal 04/20/23 16:43 Respiratory Depth Normal 04/20/23 16:43 Respiratory Pattern Normal 04/20/23 16:43 Blood Pressure 144/82 H 04/20/23 16:39 Blood Pressure Position Sitting 04/20/23 16:39 Pulse Oximetry 99 04/20/23 16:39 Oxygen Delivery Method Room Air 04/20/23 16:39 Oxygen Flow Rate 0 04/20/23 16:39
[2023-04-20 17:09] LABS: Abs Immature Grans 0.03 10^3/uL (0.0-0.06); Absolute Basophil Count 0.05 10^3/uL (0.0-0.2); Absolute Eosinophil Count 0.15 10^3/uL (0.0-0.7); Absolute Lymphocyte Count 0.93 10^3/uL (1.2-3.4); Absolute Monocyte Count 1.22 10^3/uL (0.1-0.8); Basophils % 0.5; Eosinophils % 1.6; HCT 40.9 % (36.0-46.0); HGB 13.3 g/dL (11.2-15.7); Immature Grans % 0.3; Lymphocytes % 9.9; MCH 28.9 pg (27.0-33.0); MCHC 32.5 % (32.0-36.0); MCV 89 fL (80-95); Neutrophils % 74.7; Platelet Count 338 10^3/uL (130-400); RDW 12.8 % (11.7-14.6); RDW-SD 41.8 fL; WBC 9.38 10^3/uL (4.4-10.8)
[2023-04-20 17:28] LABS: Bilirubin Negative (Negative); Blood Trace-intact (Negative); Clarity Clear (Clear); Glucose Negative (Negative); Ketones Negative (Negative); Leukocyte Esterase Negative (Negative); Nitrite Negative (Negative); Urobilinogen 0.2 mg/dL (Up to 0.2)
[2023-04-20 17:32] LABS: ALT 34 U/L (14-59); AST 19 U/L (15-37); Albumin 3.7 g/dL (3.4-5.0); Alkaline Phosphatase 129 U/L (46-116); Anion Gap 8.1 mmol/L (3-11); BUN 13 mg/dL (7-18); Bilirubin, Total 0.6 mg/dL (0.2-1.0); CO2 28.9 mmol/L (21.0-32.0); CREATININE 0.9 mg/dL (0.55-1.02); Calcium 9.3 mg/dL (8.5-10.1); Chloride 103 mmol/L (98-107); Creatine Kinase 50 U/L (26-192); Estimated GFR 70.51 (mL/min/1.73m2); Glucose 102 mg/dL (74-106); Magnesium 2.1 mg/dL (1.8-2.4); NT-proBNP 108 pg/mL (<300); Potassium 3.6 mmol/L (3.5-5.1); Sodium 140 mmol/L (136-145); Total Protein 7.4 g/dL (6.4-8.2); Troponin I < 50 ng/L (<or=60)
[2023-04-20 17:35] LABS: Bacteria Negative HPF (Negative); Crystals Negative HPF (Negative); Epithelial Cells Rare HPF (Negative); Mucus Negative (Negative); WBC Negative HPF (0-5)
[2023-04-20 17:36] LABS: C & S Indicated? No
== END 2023-04-20 18:22 | disposition home or self-care (01) ==
PROVIDERS: Emergency Provider Registered Nurse Emergency; PCP Family Medicine
DX: R60.0 Localized edema; M79.89 Other specified soft tissue disorders
CPT/HCPCS: 80053; 82550; 99283; 81003; 81015; 83735; 83880; 84484; 85025